=== PATIENT | female | born 1955 | race Caucasian/White ===

== ENCOUNTER 2021-12-09 11:33 | Emergency (ER) | payer OTHER ==
[2021-12-09] MEDS ORDERED: Sodium Chloride 0.9% 10 ML Syringe FLUSH PRN (11:51)
== END 2021-12-09 13:30 | disposition home or self-care (01) ==
LOC: JD.ED 11:33
DX: R07.89 Other chest pain (principal); Z79.82 Long term (current) use of aspirin
CPT/HCPCS: 36415; 71045; 80053; 83735; 83880; 84484; 85025; 85379; 85610; 85730; 93005; 99285; J3490